=== PATIENT | female | born 1960 | race Caucasian/White ===

== ENCOUNTER → 2016-11-25 | Outpatient (CLI) | payer BC ==
[~2016-11-25] MED LIST: ACET1TAB12 PO; ALBUTEROL INH; AMLO1CAP11 PO; ARTHRITIS TYLENOL PO; CALC600T12 PO; CEPH-583 PO; CETI1TAB14 PO; CHLO50TA PO; CHOL100018 PO; DAPA10TA PO; DICL100G5 TOP; DIPH25CA84 PO; EPIN0.3P3; ESTR0.5T15 PO; Ergocalciferol PO; I CAP; IOHEXOL 300 MG/ML 100ml INJECTION ONE; LOSA100T44 PO; MULT-806 PO; NORMAL SALINE 100 ML ONE; PANT40TA25 PO; SALINE FLUSH 10ml SYRINGE ONE; SENN8.6T97 PO; SITA1TAB8 PO; TRIA10.82 EA NOSTRIL; ZADITOR; [UNRECOGNIZED DRUG - CODE] PO
--- NOTE | 2016-11-25 13:37 | DI ---
Indication: ITS.REASON: R10.13 EPIGASTRIC PAIN PROCEDURE: CT CHEST/ABDOMEN W/C: Encounter: Initial Comparison: None Technique: Axial CT images were performed through the chest and abdomen after the administration of intravenous contrast. Coronal and sagittal two-dimensional reformats. Automated Exposure Control and Iterative Reconstruction dose reducing techniques were utilized. Contrast: Omnipaque 300 100 mL Findings: Chest: The lungs are grossly clear. No pneumonia, pleural effusion or pneumothorax. The central airways are patent. No axillary or mediastinal lymphadenopathy. Heart size is normal. No pericardial effusion. Abdomen/pelvis: Numerous surgical clips near the proximal stomach and GE junction. Prior cholecystectomy. The liver appears normal. No enhancing mass or bile duct dilatation. The spleen is normal. The remainder of the stomach is unremarkable. The pancreas and adrenal glands are within normal limits. The kidneys are normal apart from a small lower pole right renal cyst. No abdominal lymphadenopathy. Apparently previously repaired fat-containing ventral hernia. The hernia sac measures approximately 4.9 cm in diameter. There are surgical clips seen near this area suggesting prior repair. No fascial defect seen currently. The visualized small and large bowel loops are within normal limits. Bone windows show mild degenerative change in the spine. Impression: No acute disease process seen in the chest or abdomen. Postoperative changes. .
== END ==
LOC: IMA 11:57
PROVIDERS: ATTEND Family Medicine
DX: R10.13 Epigastric pain (principal); Z98.890 Other specified postprocedural states
CPT/HCPCS: 71260; 74160; J7050; Q9967